=== PATIENT | female | born 1970 | race Caucasian/White ===

== ENCOUNTER 2019-08-28 17:41 | Emergency (ER) | payer MEDICAID ==
[~2019-08-28] VITALS: Ht 154.9 cm; Wt 82.6 kg
[2019-08-28 18:10] VITALS: BP 106/61
--- NOTE | 2019-08-28 19:26 | NUR ---
PT C/O FEVER, BODY ACHES, FATIGUE X4 DAYS. PT SEEN AT [facility] WEDNESDAY AND RECEIVED A SHOT OF ANTIBIOTICS (PT UNSURE OF WHAT ANTIBIOTIC). PT STATES SHE HAS BEEN TAKING ALEVE W/ NO RELIEF. DENIES N/V/D. RR EVEN AND UNLABORED. PT CALM AND PLEASANT IN BED AT THIS TIME. VSS. MEDHX: DENIES ALLERGIES: DENIES
--- NOTE | 2019-08-28 19:35 | NUR ---
FLU SWAB COLLECTED FROM PT AND TAKEN TO LAB.
--- NOTE | 2019-08-28 20:14 | NUR ---
DR. PEREZ BEDSIDE EVALUATING PT
[2019-08-28] MEDS ORDERED: KETOROLAC 30 MG/ML VIAL IM ONE (20:35)
--- NOTE | 2019-08-28 21:43 | NUR ---
PT RESTING IN BED AT THIS TIME. NO COMPLAINTS. VSS. WILL CONTINUE TO MONITOR.
[2019-08-28 21:52] VITALS: BP 106/61
--- NOTE | 2019-08-28 21:52 | NUR ---
Patient discharged with v/s stable. Written and verbal after care instructions given and explained. Patient alert, oriented and verbalized understanding of instructions. Ambulatory with to home. All questions addressed prior to discharge. ID band removed. Patient advised to follow up with PMD. Rx of TYLENOL AND NAPROSYN given. Patient educated on indication of medication including possible reaction and side effects. Opportunity to ask questions provided and answered.
== END 2019-08-28 21:52 | disposition home or self-care (01) ==
LOC: MED 17:41
DX: B34.9 Viral infection, unspecified (principal)
CPT/HCPCS: 81002; 81025; 87804; 96372; 99283; J1885

== ENCOUNTER 2021-05-28 19:01 | Emergency (ER) | payer MEDICAID, OTHER ==
[~2021-05-28] VITALS: Ht 154.9 cm; Wt 83.5 kg
[2021-05-28 19:32] VITALS: BP 126/80
--- NOTE | 2021-05-28 20:00 | NUR ---
PATIENT CALLED BACK FROM TRIAGE BY ERMD. NO RESPONSE.
--- NOTE | 2021-05-28 20:10 | NUR ---
PATIENT CALLED BACK FROM TRIAGE BY ERMD. NO RESPONSE.
--- NOTE | 2021-05-28 20:20 | NUR ---
PATIENT LEFT WITHOUT BEING SEEN BY DR. GUNN. NO FURTHER CARE PROVIDED FOR PATIENT.
--- NOTE | 2021-05-28 21:25 | NUR ---
AMBULATED TO ER BED 1
[2021-05-28] MEDS ORDERED: ONDANSETRON 4 MG ODT PO ONE (21:45)
--- NOTE | 2021-05-28 23:00 | NUR ---
SARAH SWAB COMPLETED AND TAKEN TO LAB
--- NOTE | 2021-05-28 23:15 | NUR ---
MOVED TO ER BED 11
--- NOTE | 2021-05-28 23:30 | NUR ---
RECEIVED IN BED 11 FROM BED 1 WITH C/O FEVER X TODAY. IS AWAKE AND ALERT, SKIN WARM AND DRY
[2021-05-29] MEDS ORDERED: IBUP-2213 PO (00:52)
[2021-05-29] MEDS ORDERED: FAMO-90 PO (00:52)
[2021-05-29] MEDS ORDERED: ONDA-24 PO (00:52)
[2021-05-29 01:01] VITALS: BP 118/74
[2021-05-29 01:06] LABS: APPEARANCE,URINE CLEAR (CLEAR); BILIRUBIN,URINE NEGATIVE (NEGATIVE); BLOOD, URINE NEGATIVE (NEGATIVE); COLOR,URINE YELLOW (YELLOW); LEUKOCYTE ESTERASE ,URINE NEGATIVE (NEGATIVE); NITRITE, URINE NEGATIVE (NEGATIVE); PH,URINE 5.5 (5.0-9.0); UGLUCOSE 1+ (NEGATIVE)
[2021-05-29] MEDS ORDERED: NAPROXEN 500 MG TAB PO SCH (09:00)
== END 2021-05-29 01:01 | disposition home or self-care (01) ==
LOC: MED 19:01
DX: R50.9 Fever, unspecified (principal); Z20.822 Contact with and (suspected) exposure to COVID-19; R11.0 Nausea; R10.9 Unspecified abdominal pain; Z79.899 Other long term (current) drug therapy
CPT/HCPCS: 81003; 81025; 87426; 87804; 99283; Q0162

== ENCOUNTER 2022-02-11 07:55 | Emergency (ER) | payer OTHER ==
[~2022-02-11] VITALS: Ht 162.6 cm; Wt 83.7 kg
[~2022-02-11 07:55] MED LIST: FAMO-90 PO; IBUP-2213 PO; ONDA-188 PO
[2022-02-11 07:56] VITALS: BP 137/68
--- NOTE | 2022-02-11 08:07 | NUR ---
PT AMBULATED TO BED 6 WITH STEADY GAIT.
--- NOTE | 2022-02-11 08:37 | NUR ---
51 Y/O FEMALE BIB SELF, C/O LOWER BACK PAIN 8/10 CRAMPING RADIATING TO THE LEGS. NO TINGLING, PT ABLE TO MOVE ALL EXTREMITIES WITHOUT DISCOMFORT. DENIES INJURY OR FALL, NOTES THAT THEIR JOB INVOLVES BENDING DOWN CONSTANTLY. PMH; DENIES NKA
--- NOTE | 2022-02-11 08:54 | NUR ---
DR JOHNSON AT BEDSIDE
--- NOTE | 2022-02-11 08:57 | NUR ---
PT AMBULATED TO THE RESTROOM WITH STEADY GAIT
[2022-02-11] MEDS ORDERED: CYCLOBENZAPRINE 10 MG TAB PO ONE (09:15)
[2022-02-11] MEDS ORDERED: KETOROLAC 60 MG/2 ML VIAL IM ONE (09:15)
[2022-02-11] MEDS ORDERED: GABAPENTIN 300 MG CAP PO ONE (09:15)
[2022-02-11] MEDS ORDERED: IBUP-2213 PO (09:16)
[2022-02-11] MEDS ORDERED: LID5T TP (09:16)
[2022-02-11] MEDS ORDERED: CYCL-711 PO (09:16)
[2022-02-11] MEDS ORDERED: GABA300C PO (09:16)
--- NOTE | 2022-02-11 09:46 | NUR ---
Patient discharged with v/s stable. Written and verbal after care instructions ABOUT LUMBAR STRAIN given and explained. Patient alert, oriented and verbalized understanding of instructions. Ambulatory with steady gait. All questions addressed prior to discharge. ID band removed. Patient advised to follow up with PMD. Rx of LIDOCAINE, GABAPENTIN, MOTRIN, FLEXERIL given. Patient educated on indication of medication including possible reaction and side effects. Opportunity to ask questions provided and answered.
== END 2022-02-11 09:46 | disposition home or self-care (01) ==
LOC: MED 07:55
DX: S39.012A Strain of muscle, fascia and tendon of lower back, initial encounter (principal); X58.XXXA Exposure to other specified factors, initial encounter; Y93.89 Activity, other specified; Y92.89 Other specified places as the place of occurrence of the external cause; Y99.8 Other external cause status
CPT/HCPCS: 81002; 81025; 96372; 99283; J1885